=== PATIENT | female | born 1955 | race Asian ===

== ENCOUNTER → 2017-02-23 | Outpatient (CLI) | payer BC ==
--- NOTE | 2017-02-26 10:04 | Diagnostic Imaging Report ---
Bilateral screening mammogram 2D views with tomosynthesis The current study was also evaluated with a Computer Aided Detection (CAD) system. Indication: Screening. No current complaints stated on the questionnaire. COMPARISON: 12/24/2014 FINDINGS: The breasts are composed of heterogeneously dense parenchyma which may decrease mammographic sensitivity. Benign-appearing calcifications are seen. Allowing for technique and positional differences, no suspicious change is seen. IMPRESSION: No significant change. ACR BI-RADS Category 2: Benign findings. Result letter will be mailed to the patient. Note: At least 10% of breast cancer is not imaged by mammography. Dictated by: Dictated on workstation # [id number]
== END ==
LOC: RAD 09:36
PROVIDERS: ATTEND Internal Medicine
DX: Z12.31 Encounter for screening mammogram for malignant neoplasm of breast (principal)

== ENCOUNTER → 2018-01-17 | Outpatient (CLI) | payer BC ==
--- NOTE | 2018-01-17 14:23 | Diagnostic Imaging Report ---
PROCEDURE: MRI right joint lower extremity without contrast. TECHNIQUE: Multiplanar, multisequence [id number] MRI of the right lower extremity was accomplished. INDICATION: Right knee pain. FINDINGS: Anterior cruciate ligament is intact. There is some mucoid degeneration in the posterior cruciate ligament; however, it appears to remain intact. Both the superficial and deep components of the medial collateral ligament are intact. Biceps femoris, fibular collateral, and iliotibial band are intact. There is some myxoid degeneration in the lateral meniscus; however, there is no evidence of discrete tear. There is a tear of the posterior horn of the medial meniscus which is truncated anteriorly. There is a large globular signal throughout the posterior horn. There is myxoid degeneration of the anterior horn. The quadriceps tendon and patellar tendon are intact. There is some minimal knee joint effusion. The articular cartilage is relatively well maintained in all three knee joint compartments. There are no areas of underlying marrow edema. There is some prepatellar soft tissue swelling. IMPRESSION: Complex tear of the posterior horn of the medial meniscus as well as some myxoid degeneration throughout the lateral meniscus as well as in the anterior horn of the medial meniscus. Very minimal knee joint effusion. Prepatellar soft tissue swelling. Dictated by: Dictated on workstation # [id number]
== END ==
LOC: RAD 10:48
PROVIDERS: ATTEND Orthopaedic Surgery
DX: M23.221 Derangement of posterior horn of medial meniscus due to old tear or injury, right knee (principal); M23.311 Other meniscus derangements, anterior horn of medial meniscus, right knee; M76.51 Patellar tendinitis, right knee
CPT/HCPCS: 73721

== ENCOUNTER 2018-01-29 12:04 | Emergency (ER) | payer BC ==
[~2018-01-29] VITALS: Ht 152.4 cm; Wt 47.6 kg
--- NOTE | 2018-01-29 12:23 | ED Neurological Problem ---
General Stated Complaint: STROKE CHEST PAIN Source: patient Exam Limitations: no limitations History of Present Illness Date Seen by Provider: Jan 29, 2018 Time Seen by Provider: 12:12 Initial Comments Status post right knee arthroscopy today at outside freestanding surgical center with Dr. Mccoy. Postoperatively patient had some tightness in her throat and posterior head pain or odd feeling she reports. It was later thought that she may have left facial droop. Ultimately EMS was called and patient was transferred here. On EMS arrival, no facial droop noted and patient conversing well. Patient initially did not want to go to the emergency Department but then wanted to get checked out. She came to the emergency department for further evaluation. Arrives in no distress and no noted facial droop or focal weakness. Patient states that her throat and head felt better overall. Timing/Duration: 1 hour Severity: mild Associated Symptoms: No fever/chills, No nausea/vomiting; slurred speech; No weakness Allergies and Home Medications Allergies Coded Allergies: No Known Drug Allergies (Unverified , 07/29/10) Patient Home Medication List Home Medication List Reviewed: Yes Review of Systems Review of Systems Constitutional: see HPI; No chills, No fever Eyes: No Symptoms Reported Ears, Nose, Mouth, Throat: denies ear pain; throat pain Respiratory: No cough, No short of breath Cardiovascular: No chest pain, No edema, No palpitations Gastrointestinal: No abdominal pain, No nausea, No vomiting Genitourinary: no symptoms reported Musculoskeletal: see HPI, muscle pain, neck pain Skin: no symptoms reported Psychiatric/Neurological: See HPI, Headache; Denies Weakness Endocrine: No Symptoms Reported All Other Systems Reviewed Negative Unless Noted: Yes Past Rylwnjh-Mnoxqi-Ilkbfu Hx Past Med/Social Hx: Reviewed Nursing Past Med/Soc Hx Patient Social History Alcohol Use: Denies Use Recreational Drug Use: No Smoking Status: Never a Smoker Past Medical History Surgeries: Yes Abdominal, Orthopedic Respiratory: No Cardiac: No Neurological: No Genitourinary: No Gastrointestinal: No Musculoskeletal: Yes Arthritis Endocrine: Yes Hypothyroidsim Psychosocial: No Family Medical History Reviewed Nursing Family Hx No Pertinent Family Hx Physical Exam Vital Signs Vital Signs - First Documented 01/29/18 12:04 Temp 98.0 Pulse 87 Resp 18 B/P (MAP) 121/78 (92) Pulse Ox 97 O2 Delivery Room Air Capillary Refill : Height, Weight, BMI Height: '" Weight: lbs. oz. kg; BMI Method: General Appearance: WD/WN, no apparent distress HEENT: PERRL/EOMI, pharynx normal Neck: non-tender, full range of motion, supple, normal inspection Respiratory: lungs clear, normal breath sounds Cardiovascular: regular rate, rhythm, no murmur Peripheral Pulses: 2+ Dorsalis Pedis (R), 2+ Left Dors-Pedis (L), 2+ Radial Pulses (R), 2+ Radial Pulses (L) Gastrointestinal: non tender, soft Back: normal inspection, no CVA tenderness, no vertebral tenderness Extremities: non-tender, normal inspection Neurologic/Psychiatric: alert, oriented x 3 Crainal Nerves: normal hearing, normal speech, PERRL Motor/Sensory: no motor deficit, no sensory deficit, no pronator drift Skin: normal color, warm/dry Progress/Results/Core Measures Results/Orders Lab Results Laboratory Tests Test 01/29/18 12:17 01/29/18 12:40 Range/Units White Blood Count 6.4 4.3-11.0 10^3/uL Red Blood Count 4.49 4.35-5.85 10^6/uL Hemoglobin 13.5 11.5-16.0 G/DL Hematocrit 41 35-52 % Mean Corpuscular Volume 92 80-99 FL Mean Corpuscular Hemoglobin 30 25-34 PG Mean Corpuscular Hemoglobin Concent 33 32-36 G/DL Red Cell Distribution Width 12.8 10.0-14.5 % Platelet Count 242 130-400 10^3/uL Mean Platelet Volume 9.6 7.4-10.4 FL Neutrophils (%) (Auto) 88 H 42-75 % Lymphocytes (%) (Auto) 11 L 12-44 % Monocytes (%) (Auto) 1 0-12 % Eosinophils (%) (Auto) 0 0-10 % Basophils (%) (Auto) 0 0-10 % Neutrophils # (Auto) 5.6 1.8-7.8 X 10^3 Lymphocytes # (Auto) 0.7 L 1.0-4.0 X 10^3 Monocytes # (Auto) 0.0 0.0-1.0 X 10^3 Eosinophils # (Auto) 0.0 0.0-0.3 10^3/uL Basophils # (Auto) 0.0 0.0-0.1 10^3/uL Neutrophils % (Manual) 89 % Lymphocytes % (Manual) 11 % Monocytes % (Manual) 0 % Eosinophils % (Manual) 0 % Basophils % (Manual) 0 % Band Neutrophils 0 % Blood Morphology Comment NORMAL Prothrombin Time 12.7 12.2-14.7 SEC INR Comment 1.0 0.8-1.4 Activated Partial Thromboplast Time 31 24-35 SEC Sodium Level 144 135-145 MMOL/L Potassium Level 4.2 3.6-5.0 MMOL/L Chloride Level 111 H 98-107 MMOL/L Carbon Dioxide Level 24 21-32 MMOL/L Anion Gap 9 5-14 MMOL/L Blood Urea Nitrogen 11 7-18 MG/DL Creatinine 0.59 L 0.60-1.30 MG/DL Estimat Glomerular Filtration Rate > 60 BUN/Creatinine Ratio 19 Glucose Level 109 H 70-105 MG/DL Calcium Level 8.5 8.5-10.1 MG/DL Corrected Calcium 8.2 L 8.5-10.1 MG/DL Total Bilirubin 2.0 H 0.1-1.0 MG/DL Aspartate Amino Transf (AST/SGOT) 21 5-34 U/L Alanine Aminotransferase (ALT/SGPT) 20 0-55 U/L Alkaline Phosphatase 54 40-136 U/L Troponin I < 0.30 <0.30 NG/ML Total Protein 7.1 6.4-8.2 GM/DL Albumin 4.4 3.2-4.5 GM/DL Urine Color YELLOW Urine Clarity CLEAR Urine pH 7 5-9 Urine Specific [place] 1.010 L 1.016-1.022 Urine Protein NEGATIVE NEGATIVE Urine Glucose (UA) NEGATIVE NEGATIVE Urine Ketones 3+ H NEGATIVE Urine Nitrite NEGATIVE NEGATIVE Urine Bilirubin NEGATIVE NEGATIVE Urine Urobilinogen NORMAL NORMAL MG/DL Urine Leukocyte Esterase NEGATIVE NEGATIVE Urine RBC (Auto) NEGATIVE NEGATIVE Urine RBC NONE /HPF Urine WBC NONE /HPF Urine Squamous Epithelial Cells RARE /HPF Urine Crystals NONE /LPF Urine Bacteria NEGATIVE /HPF Urine Casts NONE /LPF Urine Mucus NEGATIVE /LPF Urine Culture Indicated NO My Orders Orders - TRISTEN ENGLISH MD Cbc With Automated Diff (01/29/18 12:16) Protime With Inr (01/29/18 12:16) Partial Thromboplastin Time (01/29/18 12:16) Comprehensive Metabolic Panel (01/29/18 12:16) Troponin I (01/29/18 12:16) Ua Culture If Indicated (01/29/18 12:16) Chest 1 View, Ap/Pa Only (01/29/18 12:16) Ekg Tracing (01/29/18 12:16) Nothing By Mouth (01/29/18 Dinner) Accucheck Stat ONCE (01/29/18 12:16) Vital Signs Stroke Patient Q15M (01/29/18 12:16) Ct Head Wo-R/O Stroke (01/29/18 12:16) O2 (01/29/18 12:16) Intake & Output 06,14,22 (01/29/18 12:16) Monitor-Rhythm Ecg Trace Only (01/29/18 12:16) Dysphagia Screening Tool (01/29/18 12:16) Lipid Panel (01/30/18 06:00) Manual Differential (01/29/18 12:17) Vital Signs/I&O 01/29/18 12:04 Temp 98.0 Pulse 87 Resp 18 B/P (MAP) 121/78 (92) Pulse Ox 97 O2 Delivery Room Air Progress Progress Note : Progress Note Seen and evaluated. IV, labs, EKG, chest x-ray and CT head ordered. No acute findings currently. Patient overall states she feels better since waking up from surgery. at bedside agrees. Monitor patient. 1359: CT results are noted. Overall labs, chest x-ray, EKG and CT did not show any significant abnormalities and patient is doing much better. She was able to pivot without assistance. Has no balance problems although does have postop wound to the right knee that limits use of that right leg at this point. IV and says, patient is conversing well and she and her both feel comfortable going home. Discharged home with return precautions. Patient verbalize understanding instructions and agreement with plan. Discharge instructions from outside facility were given to the and he has post operative instructions. Initial ECG Impression Date: Jan 29, 2018 Initial ECG Impression Time: 12:26 Initial ECG Rate: 81 Initial ECG Rhythm: Normal Sinus Comment Sinus rhythm with normal axis. No evidence of ST elevation ID. Unchanged from previous outside center done today. Interpreted by me. Diagnostic Imaging Diagonstic Imaging: Xray Plain Films/CT/US/NM/MRI: chest Comments VIA [facility]. [place], [place] [id number] PT STATUS: REG ER : 1955 PHYSICIAN: TRISTEN ENGLISH MD ADMIT DATE: 01/29/18/ER Draft Date of Exam:01/29/18 CHEST 1 VIEW, AP/PA ONLY INDICATION: Chest pain Portable chest 12:50 PM Heart size and pulmonary vascularity are normal. Lungs are clear. There are no effusions or pneumothoraces. IMPRESSION: No acute abnormalities in the chest. Dictated on workstation # [id number] Dict: 01/29/18 1300 Trans: 01/29/18 1303 [facility] [id number] Interpreted by: TRISTEN CHAMPAGNE MD Electronically signed by: Trevor Imaging: CT Plain Films/CT/US/NM/MRI: head Comments [facility]IA [place], [place] NAME: KELVIN NICHOLSCHI [facility] REC#: [id number] PT STATUS: REG ER : 1955 PHYSICIAN: TRISTEN ENGLISH MD ADMIT DATE: 01/29/18/ER Draft Date of Exam:01/29/18 CT HEAD WO-R/O STROKE EXAMINATION: CT of the head without contrast. INDICATION: CVA, hypertension. TECHNIQUE: Contiguous axial sections were taken through the skull. FINDINGS: There is no mass, shift of the midline, or hemorrhage to suggest an acute intracranial abnormality. There is no sign of an asymmetric hyperdense vessel. The ventricles are not abnormally dilated and stable in size when compared to the prior exam of 05/06/2007. There is mild cortical atrophy present. The degree of atrophy is consistent with the patient's age. The bone windows show no evidence for fracture or for destructive lesion. The orbits and sinuses were not visualized in their entirety. Where visualized, there is no acute abnormality. IMPRESSION: 1. There is no evidence for an acute intracranial abnormality. When compared to the prior study, there has been no significant change. 2. If clinical concern regarding an underlying abnormality persists, then MRI would be recommended for further study. Dictated on workstation # [id number] Dict: 01/29/18 1317 Trans: 01/29/18 1345 [id number] Interpreted by: WILLIAM CRESPO MD Electronically signed by: Departure Impression Primary Impression: Postoperative confusion Disposition: 01 HOME, SELF-CARE Condition: Improved Departure-Patient Inst. Decision time for Depature: 14:01 Referrals: JENNIFER SAMANIEGO MD (PCP/Family) Primary Care Physician Patient Instructions: Headache, Adult (DC), Stroke (DC) Add. Discharge Instructions: Continue home medications as previously prescribed. Follow-up with Dr. Mccoy as previously discussed. Follow postoperative instructions given by Dr. Mccoy. Return for worse pain, fever, vomiting, weakness, breathing problems or other concerns as needed. Copy Copies To 1: ELISEO MCCOY MD, TIMOTHY D MD Jan 29, 2018 12:23
[2018-01-29 12:26] LABS: BASOPHILS % (AUTO) 0 % (0-10); EOSINOPHILS % (AUTO) 0 % (0-10); HEMATOCRIT 41 % (35-52); HEMOGLOBIN 13.5 G/DL (11.5-16.0); LYMPHOCYTES # (AUTO) 0.7 X 10^3 (1.0-4.0); LYMPHOCYTES % (AUTO) 11 % (12-44); MEAN CORPUSCULAR HEMOGLOBIN 30 PG (25-34); MEAN CORPUSCULAR HGB CONC 33 G/DL (32-36); MEAN CORPUSCULAR VOLUME 92 FL (80-99); MEAN PLATELET VOLUME 9.6 FL (7.4-10.4); MONOCYTES % (AUTO) 1 % (0-12); NEUTROPHILS # (AUTO) 5.6 X 10^3 (1.8-7.8); NEUTROPHILS % (AUTO) 88 % (42-75); PLATELET COUNT 242 10^3/uL (130-400); RED BLOOD COUNT 4.49 10^6/uL (4.35-5.85); RED CELL DISTRIBUTION WIDTH 12.8 % (10.0-14.5); WHITE BLOOD COUNT 6.4 10^3/uL (4.3-11.0)
[2018-01-29 12:39] LABS: PROTHROMBIN TIME PATIENT 12.7 SEC (12.2-14.7)
[2018-01-29 12:47] LABS: ALANINE AMINOTRANSFERASE 20 U/L (0-55); ALBUMIN 4.4 GM/DL (3.2-4.5); ALKALINE PHOSPHATASE 54 U/L (40-136); BUN/CREATININE RATIO 19; CALCIUM 8.5 MG/DL (8.5-10.1); CARBON DIOXIDE 24 MMOL/L (21-32); CHLORIDE 111 MMOL/L (98-107); CREATININE SERUM 0.59 MG/DL (0.60-1.30); GFR ESTIMATED > 60; GLUCOSE 109 MG/DL (70-105); POTASSIUM 4.2 MMOL/L (3.6-5.0); SODIUM 144 MMOL/L (135-145); TOTAL PROTEIN 7.1 GM/DL (6.4-8.2)
[2018-01-29 13:02] LABS: BAND NEUTROPHILS 0 %; BASOPHILS % (MANUAL) 0 %; EOSINOPHILS % (MANUAL) 0 %; LYMPHOCYTES % (MANUAL) 11 %; MONOCYTES % (MANUAL) 0 %; NEUTROPHILS % (MANUAL) 89 %; RBC MORPH NORMAL
[2018-01-29 13:03] LABS: BILIRUBIN,URINE NEGATIVE (NEGATIVE); CLARITY,URINE CLEAR; COLOR,URINE YELLOW; GLUCOSE, URINE (UA) NEGATIVE (NEGATIVE); KETONES,URINE 3+ (NEGATIVE); LEUKOCYTE ESTERASE ,URINE NEGATIVE (NEGATIVE); NITRITE,URINE NEGATIVE (NEGATIVE); PH,URINE 7 (5-9); PROTEIN,URINE NEGATIVE (NEGATIVE); UROBILINOGEN,URINE NORMAL (NORMAL)
--- NOTE | 2018-01-29 13:03 | Diagnostic Imaging Report ---
INDICATION: Chest pain Portable chest 12:50 PM Heart size and pulmonary vascularity are normal. Lungs are clear. There are no effusions or pneumothoraces. IMPRESSION: No acute abnormalities in the chest. Dictated by: Dictated on workstation # [id number]
[2018-01-29 13:11] LABS: BACTERIA,URINE NEGATIVE /HPF; SQUAMOUS EPITHELIAL CELL,UR RARE /HPF
--- NOTE | 2018-01-29 13:46 | Diagnostic Imaging Report ---
EXAMINATION: CT of the head without contrast. INDICATION: CVA, hypertension. TECHNIQUE: Contiguous axial sections were taken through the skull. FINDINGS: There is no mass, shift of the midline, or hemorrhage to suggest an acute intracranial abnormality. There is no sign of an asymmetric hyperdense vessel. The ventricles are not abnormally dilated and stable in size when compared to the prior exam of 05/06/2007. There is mild cortical atrophy present. The degree of atrophy is consistent with the patient's age. The bone windows show no evidence for fracture or for destructive lesion. The orbits and sinuses were not visualized in their entirety. Where visualized, there is no acute abnormality. IMPRESSION: 1. There is no evidence for an acute intracranial abnormality. When compared to the prior study, there has been no significant change. 2. If clinical concern regarding an underlying abnormality persists, then MRI would be recommended for further study. Dictated by: Dictated on workstation # [id number]
[2018-01-29 14:11] VITALS: BP 106/52
== END 2018-01-29 14:25 | disposition home or self-care (01) ==
LOC: EDUNIT# 12:04 → ER 12:05
DX: M96.89 Other intraoperative and postprocedural complications and disorders of the musculoskeletal system (principal); R41.0 Disorientation, unspecified; E03.9 Hypothyroidism, unspecified; R07.9 Chest pain, unspecified; I10 Essential (primary) hypertension; Z86.73 Personal history of transient ischemic attack (TIA), and cerebral infarction without residual deficits; Z98.890 Other specified postprocedural states
CPT/HCPCS: 36415; 70450; 71045; 80053; 81000; 84484; 85007; 85027; 85610; 85730; 93005; 93041

== ENCOUNTER → 2018-03-07 | Outpatient (CLI) | payer BC ==
--- NOTE | 2018-03-07 11:20 | Diagnostic Imaging Report ---
PROCEDURE: MRI lumbar spine. TECHNIQUE: Multiplanar, multisequence MRI of the lumbar spine was performed without contrast. INDICATION: Right knee pain. Left knee stiffness. COMPARISON: I have no previous. FINDINGS: Lumbar body heights are maintained. The alignment is anatomic. The marrow signal intensity unremarkable. The conus appeared normal. The nerves of the cauda equina revealed a normal pattern of dispersal. There is mild desiccation of the L5-S1 disc with slight stature loss. There are findings of some midline posterior annular tearing with mild posterior bulging slightly indenting the ventral thecal sac. The disc is in close proximity to the takeoff of the descending S1 nerves without their displacement, thickening or edema. The neural foramen at this level as well as throughout the remaining levels widely patent. The remaining discs are well-hydrated and nondisplaced. There is no substantial stenosis. Pedicles and pars intact. No acute finding. IMPRESSION: L5-S1 mild disc desiccation and midline posterior annular tearing accompanied by mild bulge. No substantial degree of canal, foraminal or recess stenosis however. The remaining levels are normal. There is normal alignment. No acute bony abnormality. Dictated by: Dictated on workstation # [id number]
== END ==
LOC: RAD 09:20
PROVIDERS: ATTEND Orthopaedic Surgery
DX: M51.17 Intervertebral disc disorders with radiculopathy, lumbosacral region (principal)
CPT/HCPCS: 72148

== ENCOUNTER → 2018-09-04 | Outpatient (CLI) | payer BC ==
--- NOTE | 2018-09-04 19:07 | Diagnostic Imaging Report ---
INDICATION: Routine screening. Comparison is made with prior mammograms from 02/23/2017 and 12/24/2014. 2-D and 3-D bilateral screening mammography was performed. The current study was also evaluated with a Computer Aided Detection (CAD) system. 3-D tomosynthesis was also performed and reviewed. FINDINGS: Both breasts are heterogeneously dense, limiting the sensitivity of mammography. The parenchymal pattern is stable. No mass or malignant-appearing microcalcifications are seen. The axillae are unremarkable. IMPRESSION: No mammographic features suspicious for malignancy are identified. ACR BI-RADS Category 1: Negative. Result letter will be mailed to the patient. Note: At least 10% of breast cancer is not imaged by mammography. Dictated by: Dictated on workstation # [id number]
== END ==
LOC: RAD 10:25
PROVIDERS: ATTEND Internal Medicine
DX: Z12.31 Encounter for screening mammogram for malignant neoplasm of breast (principal)
CPT/HCPCS: 77067